=== PATIENT | female | born 1960 | race Caucasian/White ===

== ENCOUNTER 2016-03-08 06:41 | Inpatient (IN) | payer BC ==
--- NOTE | 2016-02-23 21:28 | HP ---
ADMISSION HISTORY AND PHYSICAL: DATE OF ADMISSION: 03/08/16 ATTENDING SURGEON: Alejandro Villafana MD (dictated by DELMER Pat) CHIEF COMPLAINT: Colostomy. HISTORY OF PRESENT ILLNESS: This is a 55-year-old female who underwent exploratory laparotomy with drainage of pelvic abscess, sigmoid colectomy, and end colostomy with Miriam's pouch for perforated diverticulitis on 11/13/15. She had been treated initially with antibiotic therapy, but ultimately required surgery. She has had an otherwise uneventful postoperative course with the exception of the gradual development of bulge in the area of colostomy indicating a probable parastomal hernia. She has not had any pain or obstructive symptoms. She was last seen by Dr. Villafana on 01/20/16, at which time the hernia was suspected and the patient states that the size of the bulge has increased by approximately 50% since that time. Again, she has had no symptoms of significance. Dr. Villafana has discussed with her the process for reversal of the colostomy. She will complete standard mechanical bowel prep with oral antibiotics. She would like to proceed as scheduled with laparoscopic reversal of colostomy. PAST MEDICAL HISTORY: Diverticular disease as noted above, hypertension, hyperlipidemia, prior history of atrial fibrillation (versus SVT). She was seen in consultation by Dr. Camp who felt that it was an isolated episode and she has had no recurrence since then. 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 PAST SURGICAL HISTORY: Include x2, bilateral breast reduction, dental surgery as well as the Miriam's procedure as noted above. CURRENT MEDICATIONS: 1. Atorvastatin 20 mg once daily. 2. Propranolol LA 160 mg once daily. 3. Probiotic once daily. 4. Biotin once daily. DRUG ALLERGIES: PENICILLIN (hives). FAMILY HISTORY: Notable for her father having difficulty coming out of general anesthesia (confusion and disorientation). Her father also had history of a DVT. No family history of bleeding problems. SOCIAL HISTORY: The patient lives in her own home. Her daughter currently resides with her. She also has a son who is in college. The patient works as an residential real estate assistant. She denies use of tobacco. She drinks on average 1 glass of wine daily. She denies other drug use. REVIEW OF SYSTEMS: General: No recent constitutional symptoms or acute illnesses other than described in the HPI. She did have a net weight loss of about 17 pounds after her hospitalization and has regained about 2 pounds, but weight has otherwise remained stable. HEENT: No additional problems reported. Cardiovascular: No recent episodes of chest pain, palpitations. No history of heart murmur. She was treated for hypertension. Respiratory: No history of asthma, chronic cough, or shortness of breath. GI: No upper GI symptoms. Colostomy has been functional. See also above per HPI. She did undergo colonoscopy around 2007, which was an otherwise unremarkable exam. : No problems reported. COLLEGE ADMISSIONS COUNSELOR: She is up-to-date within the past year for breast and pelvic exams done by her PCP. No interval problems reported. Endocrine: Past history of hypothyroidism, but currently euthyroid. No diabetes. PHYSICAL EXAMINATION GENERAL: Well-nourished, well-developed female, in no acute distress. VITAL SIGNS: Height 5 feet 6 inches, weight 190 pounds, other vital signs per nursing. HEENT: Pupils equal and round, reactive. EOMs intact. No conjunctival pallor. Oropharynx: Teeth in good repair. No intraoral lesions. NECK: No lymphadenopathy, thyromegaly, or masses. HEART: Regular rate and rhythm. No murmur noted. LUNGS: Clear to auscultation. No wheezes. BREASTS: Not examined. ABDOMEN: Well-healed midline incision and left-sided colostomy. There is a notable bulge particularly when the patient is in standing position. This was nontender and reducible in supine position. The remainder of the abdomen is soft, nontender without palpable masses or organomegaly. SKIN: Warm and dry. No suspicious rashes or lesions. GENITALIA: Not done. RECTAL: Not done. BACK: No spinous process or CVA tenderness. EXTREMITIES: No edema. NEUROLOGICAL: Grossly intact. IMPRESSION: Colostomy. PLAN: Laparoscopic reversal of colostomy. DELMER NO CC: Antoinette Feldman NP, KNIT GOODS WASHER* [id number]/[facility] #: [id number] [facility] MEDICAL CENTERRachel
[~2016-03-08 06:41] MED LIST: Buffered Lidocaine 1% SYR 3ML* 3 ML/SYR SYRINGE INTRADERM ONE; Gentamicin ADULT (*) 300 MG in NS 0.9% 100 ML* 100 ML IVPB SCH
[2016-03-08] MEDS ORDERED: Buffered Lidocaine 1% SYR 3ML* 3 ML/SYR SYRINGE ONE (07:08)
[2016-03-08] MEDS ORDERED: Clindamycin 900 MG IVPREMIX(* 900 MG/50 ML SDV IV ONE (07:08)
[2016-03-08] MEDS ORDERED: Heparin VIAL(*) 5000 UNITS/ML VIAL (FIVE THOUSAND) ONE (07:09)
[2016-03-08] MEDS ORDERED: Bupivacaine 0.5% W/EPI SDV* 30 ML VIAL ONE (07:14)
[2016-03-08] MEDS ORDERED: Midazolam* 1 MG/ML 5 ML VIAL (5 MG) ONE (08:03)
[2016-03-08] MEDS ORDERED: Propofol* 10 MG/ML 20 ML BTL IV PUSH ONE (08:08)
[2016-03-08] MEDS ORDERED: Atracurium* 10 MG/ML 10 ML VIAL ONE (08:08)
[2016-03-08] MEDS ORDERED: Scopolamine 1.5 mg* PATCH ONE ×2 (08:09→13:43)
[2016-03-08] MEDS ORDERED: fentaNYL* 50 MCG/ML 5 ML VIAL (250 MCG VIAL) ONE (08:09)
[2016-03-08] MEDS ORDERED: DiMENhydriNATE IV* 50 MG/ML VIAL IV PUSH PRN (09:39)
[2016-03-08] MEDS ORDERED: Ondansetron INJ* 2 MG/ML VIAL IV PRN (09:39)
[2016-03-08] MEDS ORDERED: Ondansetron INJ* 2 MG/ML VIAL ONE ×3 (11:16→12:20)
[2016-03-08] MEDS ORDERED: fentaNYL* 50 MCG/ML 2 ML VIAL (100 MCG VIAL) ONE ×4 (11:16→14:06)
[2016-03-08] MEDS ORDERED: HYDROmorphone INJ* 1 MG/ML CARPUJECT SYRINGE ONE (12:20)
[2016-03-08] MEDS: fentaNYL* 50 MCG/ML 2 ML VIAL (100 MCG VIAL) IV PRN ×5 (12:25→13:44)
[2016-03-08] MEDS: HYDROmorphone INJ* 1 MG/ML CARPUJECT SYRINGE IV PRN ×5 (12:26→13:29)
[2016-03-08] MEDS ORDERED: DiMENhydriNATE IV* 50 MG/ML VIAL ONE (12:27)
[2016-03-08] MEDS ORDERED: Ketorolac INJ* 30 MG/ML 1 ML VIAL IM PRN (12:30)
--- NOTE | 2016-03-08 12:39 | SURGPN ---
Brief Operative Note - Surgery Procedures: PREOP DX: COLOSTOMY, PARASTOMAL HERNIA, H/O DIVERTICULITIS POSTOP DX: SAME AND VENTRAL INCISIONAL HERNIA PROC: ATTEMPTED LAPAROSCOPIC CONVERTED TO OPEN REVERSAL OF COLOSTOMY, ISSA, PRIMARY CLOSURE OF VENTRAL INCISIONAL HERNIAS. SURG: MECENAS ASSIST: SPIKE ANES: FARIDA/SIDDHARTHA EBL: 200 ML IVF: 4.9L LR SPEC: COLOSTOMY DRAIN: NONE COMPL: NONE COND: STABLE /EXTUBATED TO RR.
[2016-03-08] MEDS ORDERED: HYDROmorphone PCA* 20 MG/20 ML PCA.SYRING ONE (13:03)
[2016-03-08] MEDS ORDERED: Neostigmine Methylsulfate* 2 MG/2 ML SYRINGE ONE ×2 (13:43→15:14)
[2016-03-08] MEDS ORDERED: Glycopyrrolate IV* 0.2 MG/ML 1 ML VIAL ONE ×2 (13:43→15:14)
[2016-03-08] MEDS ORDERED: HYDROmorphone PCA* 20 MG/20 ML PCA.SYRING PCA SCH (14:00)
[2016-03-08] MEDS: Docusate CAP* 100 MG PO SCH (22:19)
[2016-03-09 07:08] LABS: Hematocrit 30 % (35-47); Hemoglobin 9.7 g/dl (12.0-16.0); Mean Corpuscular HGB Conc 32 g/dl (31-36); Mean Corpuscular Hemoglobin 28 pg (27-31); Mean Corpuscular Volume 86 fL (80-97); Mean Platelet Volume 8 um3 (7.4-10.4); Red Blood Count 3.49 10^6/ul (4.0-5.4); Red Cell Distribution Width 15 % (10.5-15); White Blood Count 14.4 10^3/ul (3.5-10.8)
[2016-03-09 07:17] LABS: BUN/Creatinine Ratio 12.6 (8-20); Calcium 8.6 mg/dL (8.6-10.3); EGFR African American 45.8 (>60); EGFR Non-African American 35.6 (>60); Potassium 4.5 mmol/L (3.5-5.0)
--- NOTE | 2016-03-09 09:04 | PN ---
Progress Note - Progress Note SOAP: Subjective: []awake,alert,sipping clears,reports good pain control with AIRPORT RAMP ATTENDANT,using inspiron, no flatus,some belching Objective:lungs with decreased bs at bases,clear upper saldaña;heart:RRR,was tachy to 102,now 88bpm,no M/R;abd:hypoactive bs,dressing intact,binder on; extremities:SCDs on,nontender [] Assessment:POD#1s/p open reversal colostomy,ISSA,primary closure ventral incisional hernias;low uo and tachy overnight,creat 1.5;getting IV bolus now and HR 88 now,tolerating clears;motivated to use inspiron and walk [] Plan:Await GI function,continue clears for now;follow uo;encourage inspiron and walking,repeat P3 03/10/16 Vital Signs Temp 98.1 F 03/09/16 07:10 Pulse 102 03/09/16 07:10 Resp 22 03/09/16 07:10 BP 106/58 03/09/16 07:10 Pulse Ox 100 03/09/16 07:00 Intake & Output 03/08/16 03/09/16 03/09/16 18:59 06:59 18:59 Intake Total 5300 2434 Output Total 525 600 Balance 4775 1834 Weight 191 lb Intake: IV Fluids 5300 2114 GENTAMYCIN 300MG 200 LR 2114 Lactated Ringer's 5100 Oral 320 Output: Griffin 325 600 Estimated Blood Loss 200 Other: # Bowel Movements 0 []
[2016-03-09] MEDS: Atorvastatin* 20 MG TAB PO SCH (09:14)
[2016-03-09] MEDS: PROPRANOLOL 160 MG PO SCH (09:14)
[2016-03-09] MEDS: Docusate CAP* 100 MG PO SCH ×2 (09:14→19:42)
--- NOTE | 2016-03-09 10:03 | OP ---
DATE OF OPERATION: 03/08/16 - ROOM #332 DATE OF : 58 SURGEON: Alejandro Villafana MD PROFESSOR OF ARCHAEOLOGY: Hossein Jensen MD ANESTHESIOLOGIST: Niraj Marin MD ANESTHESIA: General endotracheal. PRE-OP DIAGNOSES: 1. Colostomy. 2. Parastomal hernia. 3. History of diverticulitis. POST-OP DIAGNOSIS: 1. Colostomy. 2. Parastomal hernia. 3. History of diverticulitis. 4. Ventral incisional hernia. OPERATIVE PROCEDURE: Laparoscopic converted to open reversal of colostomy with lysis of adhesions and primary closure of ventral incisional hernias. ESTIMATED BLOOD LOSS: 200 mL. IV FLUIDS: 4.9 L of crystalloids. SPECIMEN: Colostomy. DRAINS: None. COMPLICATIONS: None. COUNTS: Instrument, needle, and sponge counts were correct. DESCRIPTION OF PROCEDURE: The patient was brought to the operating room and placed on table supine. Sequential compression devices were placed on both lower extremities. General anesthesia was administered. Griffin catheter was placed. Colostomy was oversewn. Rectal stump was irrigated with Betadine solution. The patient received appropriate antibiotics. The abdomen was prepped and draped in the usual sterile fashion. Time-out was performed. Local anesthetic was infiltrated into the skin and soft tissue prior to making the initial incisions. A curvilinear periumbilical incision was created to the patient's previous scar in the upper abdomen. There was found to be a hernia at this site. Hernia sac was entered and a 12-mm trocar was placed. Carbon dioxide was insufflated to a pressure of 15 mmHg. Laparoscope was introduced. There were numerous adhesions of omentum into the anterior abdominal wall. A clear area was noted on the right side and a 5-mm trocar was placed in the right lower quadrant. Omental adhesions were taken down using a combination of sharp and blunt dissection and LigaSure. There was a notable parastomal hernia. The ventral incisional hernia at the superior aspect of the incision was at least 6 cm across. There were adhesions in the pelvis involving small bowel. Based on the findings, it was felt that it would be best to convert to laparotomy to complete the procedure. Laparoscope was removed and ports were removed. Midline laparotomy was undertaken utilizing the previous scar. The patient was noted to have areas of attenuation in the midline in the infraumbilical portion of the previous abdominal closure as well. The adhesiolysis was completed to free the omentum completely and drawing it up out of the abdomen. The small bowel was freed as well and able to be retracted into the upper abdomen. There was noted to be a rectal stump that ended at the sacral promontory. There appeared to be no adhesions or inflammation in this area. The colostomy was freed from the subcutaneous tissues after incising the skin around it. Due to the presence of a parastomal hernia, this made the dissection relatively straight forward. Once the colostomy was freed from the site, it was brought up to the midline and then the distal portion was transected, and the bowel was sized for the EEA stapler. It was decided to use a 28-mm EEA stapler. The anvil was placed into the proximal lumen of the bowel and then a 2-0 Surgipro was used to pursestring the bowel around the anvil. Next, the sizers were passed transrectally. Due to the presence of some constriction based on the peritoneal reflection, it was decided to mobilize this area. The cautery was used to score the peritoneum around the anterior rectum in order to free it. At this point, the colostomy site was addressed. In order to close the hernia at this site, the anterior and posterior rectus fascia were each identified and using a combination of sharp and cautery dissection. The posterior sheath was closed with interrupted #1 Polysorb using interrupted [id number] sutures. This was closed from the inside of the peritoneal cavity. The anterior sheath was closed in the same fashion. At this point, we then proceeded with the colorectal anastomosis. The EEA was stapler was able to be passed without difficulty transanally, transrectally, and the stapler was brought out in the anterior portion of the superior rectum just about 2 to 3 cm distal to the staple line. The anastomosis was performed and then this was tested using a bubble leak test and there was no leak identified. Copious lavage was performed in the peritoneum until clear and inspection of small bowel and omentum revealed some areas of bleeding on the omentum and these were controlled with cautery and 2-0 Polysorb suture ligature. The omentum was then placed beneath the incision. Due to the presence of the ventral incisional hernia superiorly, as well the attenuated areas infraumbilically the subcutaneous tissues were elevated at these sites to identify the healthy fascial edges. This was done on both the left and right sides of the abdomen. After identifying healthy fascial edges, the wound was closed with interrupted #1 Polysorb using [id number] sutures and then the subcutaneous tissues were copiously lavaged. Hemostasis was achieved with the use of cautery and the midline wound was closed with stefany. The lateral colostomy wound was in direct communication with the midline wound after we had mobilized the subcutaneous tissues and this was partially closed with stefany in the middle and then packed with 1-inch plain gauze saline packing. Dressings were applied. The patient tolerated this procedure well. She was extubated and transferred to the recovery room in stable condition. CC: Michelle Rendon MD* [id number]/[facility] #: [id number] MTDD
[2016-03-09] MEDS ORDERED: Acetaminophen TAB* 325 MG ONE (19:33)
[2016-03-10] MEDS: Acetaminophen TAB* 325 MG PO PRN ×3 (04:13→20:59)
[2016-03-10 06:38] LABS: BUN/Creatinine Ratio 12.2 (8-20); Calcium 8.7 mg/dL (8.6-10.3); EGFR African American 75.5 (>60); EGFR Non-African American 58.7 (>60)
[2016-03-10 06:58] LABS: Potassium 4.2 mmol/L (3.5-5.0)
[2016-03-10] MEDS: Docusate CAP* 100 MG PO SCH ×2 (09:38→20:58)
[2016-03-10] MEDS: Atorvastatin* 20 MG TAB PO SCH (09:38)
[2016-03-10] MEDS ORDERED: oxyCODONE/Acetamin 5/325 MG* TAB PO PRN (09:38)
[2016-03-10] MEDS: PROPRANOLOL 160 MG PO SCH (09:38)
[2016-03-10] MEDS: Ondansetron INJ* 2 MG/ML VIAL IV PRN (11:10)
--- NOTE | 2016-03-10 14:26 | PN ---
Progress Note - Progress Note SOAP: Subjective: Had a lot of pain last night. Currently about a 5/10 when at rest. Dilaudid RESAW MACHINE OPERATOR helpful. No flatus/N/V. Objective: Vital Signs Temp 98.7 F 03/10/16 07:13 Pulse 71 03/10/16 07:13 Resp 18 03/10/16 11:00 BP 104/67 03/10/16 07:13 Pulse Ox 95 03/10/16 11:00 Intake & Output 03/09/16 03/10/16 03/10/16 18:59 06:59 18:59 Intake Total 2857 1680 1125 Output Total 800 2725 700 Balance 2056 -1044 425 Intake: IV Fluids 5305 834 7768 LR 9574 875 1308 Oral 900 700 120 Output: Urine 550 Griffin 800 2725 Emesis 150 Other: Estimated Void Medium # Bowel Movements 0 Abd: dressings intact with ss staining on LLQ wound. Midline wound intact without erythema. Packing in LLQ wound. No drainage noted. Laboratory Results - last 24 hr 03/10/16 05:22 Sodium 135 Potassium 4.2 Chloride 105 Carbon Dioxide 22 Anion Gap 8 BUN 12 Creatinine 0.98 H Est GFR ( Amer) 75.5 Est GFR (Non-Af Amer) 58.7 BUN/Creatinine Ratio 12.2 Glucose 100 Calcium 8.7 Assessment: POD#2 s/p reversal of colostomy and ventral hernia repairs. Doing well. Plan: Await GI function. Ok to adv diet to full. Add po pain meds.
[2016-03-10] MEDS: oxyCODONE/Acetamin 5/325 MG* TAB PO PRN (15:39)
[2016-03-11] MEDS: Acetaminophen TAB* 325 MG PO PRN (02:27)
[2016-03-11] MEDS: PROPRANOLOL 160 MG PO SCH (08:43)
[2016-03-11] MEDS: Docusate CAP* 100 MG PO SCH ×2 (08:44→20:06)
[2016-03-11] MEDS: Atorvastatin* 20 MG TAB PO SCH (08:44)
--- NOTE | 2016-03-11 10:46 | PN ---
Progress Note - Progress Note SOAP: Subjective: No flatus but feels gas moving around. Pain control is better today. She has been walking more. We discussed expectations regarding discharge and follow up. Objective: Vital Signs Temp 98.2 F 03/11/16 07:37 Pulse 72 03/11/16 07:37 Resp 16 03/11/16 07:37 BP 144/91 03/11/16 07:37 Pulse Ox 97 03/11/16 07:37 Intake & Output 03/10/16 03/11/16 03/11/16 18:59 06:59 18:59 Intake Total 1365 2902 Output Total 1250 825 600 Balance 115 2077 -600 Intake: IV Fluids 1005 1932 LR 1005 1932 IVPB 50 LR 50 Oral 360 920 Output: Urine 700 825 600 Colostomy 400 Emesis 150 Other: Estimated Void Medium NAD Abd: incis c/d/i; no erythema; soft; minimal tenderness. Packing changed. +BS. Assessment: POD#3 s/p reversal of colostomy/hernia repair. Doing well. Plan: Await flatus. Continue packing. Likely home Sun/Mon.
[2016-03-12] MEDS: Ondansetron INJ* 2 MG/ML VIAL IV PRN (07:48)
[2016-03-12] MEDS: Atorvastatin* 20 MG TAB PO SCH (08:17)
[2016-03-12] MEDS: Docusate CAP* 100 MG PO SCH ×2 (08:17→21:57)
[2016-03-12] MEDS: PROPRANOLOL 160 MG PO SCH (08:17)
[2016-03-12] MEDS ORDERED: Ondansetron ODT TAB* 4 MG PO PRN (10:01)
[2016-03-12] MEDS: oxyCODONE/Acetamin 5/325 MG* TAB PO PRN ×4 (10:08→21:56)
[2016-03-13] MEDS: oxyCODONE/Acetamin 5/325 MG* TAB PO PRN ×3 (02:11→11:28)
[2016-03-13] MEDS: Atorvastatin* 20 MG TAB PO SCH (09:14)
[2016-03-13] MEDS: PROPRANOLOL 160 MG PO SCH (09:14)
[2016-03-13] MEDS: Docusate CAP* 100 MG PO SCH (09:14)
[2016-03-13 12:18] VITALS: BP 151/87
--- NOTE | 2016-05-21 14:36 | DS ---
DISCHARGE SUMMARY: DATE OF ADMISSION: 03/08/16 DATE OF DISCHARGE: 03/13/16 DISCHARGE DIAGNOSES: 1. Colostomy status. 2. Diverticular disease. 3. Hypertension. 4. Hyperlipidemia. 5. Parastomal hernia. OPERATIVE PROCEDURE: Laparoscopic converted to open reversal colostomy with lysis of adhesions and primary closure of ventral incisional hernias. SURGEON: Alejandro Villafana MD. DATE OF SURGERY: 03/08/16 HOSPITAL COURSE: This is a 55-year-old female with known history of diverticular disease, who is status post exploratory laparotomy with drainage of pelvic abscess and sigmoid colectomy as well as end colostomy and Miriam's pouch. The patient was admitted on 03/08/16 for elective reversal of her colostomy with repair of ventral incisional hernias. The patient was admitted same day, taken to the operating room and underwent the operation as described in the operative report. Postoperatively, the patient did well; and on 03/09/16, she was awake, alert, taking clear liquids. She was using ADJUNCT FACULTY with good pain control and ambulating and using her Inspiron. The remainder of her postoperative course was unremarkable and she was passing flatus and having bowel movements by 03/13/16. Diet was advanced. Wound was being managed with packing changes and it was felt she was stable for discharge home on 03/13/16. She is provided with discharge instructions from [facility] office and she was instructed to follow up a week after for routine followup. No tests were pending. [id number]/[facility] #: [id number] MTDD
== END 2016-03-13 17:56 | disposition home or self-care (01) | DRG 221 ==
LOC: AA 06:41 → SSU 12:30
PROVIDERS: ADMIT Surgery; ATTEND Surgery
PROC: 0DNS0ZZ (ICD-10-PCS; 2016-03-08)
PROC: 0WQF0ZZ Repair Abdominal Wall, Open Approach (ICD-10-PCS; 2016-03-08)
PROC: 0DBN0ZZ Excision of Sigmoid Colon, Open Approach (ICD-10-PCS; 2016-03-08)
PROC: 0WJF4ZZ Inspection of Abdominal Wall, Percutaneous Endoscopic Approach (ICD-10-PCS; 2016-03-08)
PROC: 0WQF0ZZ Repair Abdominal Wall, Open Approach (ICD-10-PCS; 2016-03-08)
PROC: 0DQS0ZZ (ICD-10-PCS; 2016-03-08)
PROC: 0DNS4ZZ (ICD-10-PCS; principal; 2016-03-08 08:00)
DX: Z43.3 Encounter for attention to colostomy (principal); I48.91 Unspecified atrial fibrillation; I10 Essential (primary) hypertension; K57.90 Diverticulosis of intestine, part unspecified, without perforation or abscess without bleeding; E78.5 Hyperlipidemia, unspecified; K43.2 Incisional hernia without obstruction or gangrene; R00.0 Tachycardia, unspecified; E66.9 Obesity, unspecified; K43.5 Parastomal hernia without obstruction or gangrene; K66.0 Peritoneal adhesions (postprocedural) (postinfection); Z88.0 Allergy status to penicillin; Z83.2 Family history of diseases of the blood and blood-forming organs and certain disorders involving the immune mechanism; Z84.89 Family history of other specified conditions; Z68.30 Body mass index [BMI] 30.0-30.9, adult; Z53.31 Laparoscopic surgical procedure converted to open procedure
CPT/HCPCS: 36415; 80048; 85025; 88304; 94760; A9270-GY; J1170; J1240; J1580; J1644; J1885; J2250; J2405; J2704; J3010

== ENCOUNTER 2016-08-09 10:33 | Observation (INO) | payer BC ==
--- NOTE | 2016-07-26 16:03 | HP ---
CC: Dr. Michelle Rendon * PREOPERATIVE HISTORY AND PHYSICAL: DATE OF PREOPERATIVE HISTORY AND PHYSICAL: 07/26/16 DATE OF ADMISSION/SURGERY: 08/09/16 This patient is scheduled for AA admission by Dr. Villafana on 08/09/16. ATTENDING SURGEON: Alejandro Villafana MD (dictated by Shaquille Gonzales NP). CHIEF COMPLAINT: Ventral incisional hernia. HISTORY OF PRESENT ILLNESS: The patient is a 56-year-old female, well-known to Dr. Villafana; she is status post expiatory laparotomy with sigmoid colectomy and Miriam's procedure for acute sigmoid diverticulitis with abscess, in October 2015; on 03/08/16 she underwent laparoscopic, converted to open, colostomy reversal with lysis of adhesions and primary closure of ventral incisional hernias. She returned to see Dr. Villafana on 06/15/16 because of bulging in the area of the midline incision, in the periumbilical region towards the left. She denied any nausea, vomiting or change in bowel habits or pain or tenderness. She noticed that the bulge reduces when she is supine. Dr. Villafana examined the patient and noted an incisional ventral hernia and recommends laparoscopic repair of the ventral incisional hernia with mesh, and described the nature of the surgical procedure, the relevant risks and benefits , the need for inpatient hospitalization, and today I reviewed the expected postoperative care and recovery, including the use of an abdominal binder postoperatively. The patient has had a chance to ask questions and stated that she understands the informations and is satisfied with the answers given to her questions. She will sign surgical consent on the day of surgery. PAST MEDICAL HISTORY: Diverticular disease as noted above, hypertension, hyperlipidemia, prior history of atrial fibrillation (versus SVT). She was seen in consultation by Dr. Camp who felt that it was an isolated episode and she has had no recurrence since then. PAST SURGICAL HISTORY: section x2; bilateral breast reduction; exploratory laparotomy with sigmoid colectomy, drainage of abscess, and end colostomy with Miriam's pouch for acute sigmoid diverticulitis with abscess and small bowel obstruction, 11/13/15, by Dr. Villafana; laparoscopic, converted to open, colostomy reversal with lysis of adhesions and primary closure of ventral incisional hernias, 03/08/16, by Dr. Villafana. CURRENT MEDICATIONS: 1. Atorvastatin 20 mg p.o. daily in the morning. 2. Propranolol LA 160 mg p.o. daily in the morning. 3. Multivitamin daily. 4. Probiotic daily. 5. Biotin supplement daily. ALLERGIES: PENICILLIN causes hives. FAMILY HISTORY: Notable for father with history of DVT, confusion, and disorientation on coming out of general anesthesia. No family history of bleeding problems. 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 She denies the use of tobacco and drinks on average 1 glass of wine daily, and denies the use of other substances. REVIEW OF SYSTEMS: Constitutional: No recent symptoms or acute illnesses. HEENT: No problems reported. Cardiovascular: No recent episodes of chest pain , palpitations or syncope; she has a history of hypertension and hyperlipidemia. Respiratory: No history of asthma, chronic cough or shortness of breath. GI: No upper GI symptoms; no chronic diarrhea or constipation. Genitourinary: No problems reported. PUPPY SITTER: She is up-to-date within the past year for breast and pelvic exams, done by her primary care provider. No interval problems reported. Endocrine: Past history of hypothyroidism, currently euthyroid. No diabetes. She denies any previous anesthesia complications; she denies any history of deep vein thrombosis or pulmonary embolism; she has never received a blood transfusion and denies any bleeding tendencies. PHYSICAL EXAMINATION GENERAL SURVEY: The patient is a 56-year-old female, well developed, well nourished, in no acute distress. VITAL SIGNS: Height 66 inches, weight 195 pounds, body mass index 31.5, blood pressure 130/74, pulse 60 and regular, respiratory rate 16, temperature 98.1 tympanic. HEENT: Benign. NECK: Supple. No cervical lymphadenopathy. No thyromegaly. LUNGS: Breath sounds bilaterally clear and equal. HEART: Regular rate and rhythm. No murmurs or rubs appreciated. ABDOMEN: Active bowel sounds, well-healed midline and left lower quadrant surgical scars; soft, nontender throughout; with the patient standing there is a protrusion in the infraumbilical region to the left of midline, with the patient supine the mass reduces and palpation reveals a defect approximately 4 cm wide x 8 cm long; there is no associated tenderness. BACK: No CVA tenderness. PELVIC: Deferred. RECTAL: Deferred. EXTREMITIES: Warm, without edema or skin ulceration or calf tenderness. SKIN: Warm, dry, intact. NEUROLOGIC: Alert and oriented x3, steady gait. IMPRESSION: Ventral incisional hernia. PLAN: AA admission to Dr. Villafana' service on 08/09/16 for laparoscopic repair of the ventral incisional hernia with mesh. SHAQUILLE GONZALES, STOVE REFINISHER [id number]/[facility] #: [id number] [facility] CENTERRachel
[~2016-08-09 10:33] MED LIST changes: +Buffered Lidocaine 0.9% SYRIN* 5 ML/SYR SYRINGE INTRADERM ONE; -Buffered Lidocaine 1% SYR 3ML* 3 ML/SYR SYRINGE INTRADERM ONE; +Famotidine TAB* 20 MG PO ONE; -Gentamicin ADULT (*) 300 MG in NS 0.9% 100 ML* 100 ML IVPB SCH; +Ibuprofen TAB* 400 MG PO ONE; +Metoclopramide TAB* 10 MG PO ONE; +Sodium Citrate/Citric Acid* 15 ML UDC PO ONE
[2016-08-09] MEDS ORDERED: Metoclopramide TAB* 10 MG ONE (10:46)
[2016-08-09] MEDS ORDERED: Clindamycin 900 MG IVPREMIX(* 900 MG/50 ML SDV IV ONE (10:46)
[2016-08-09] MEDS ORDERED: Sodium Citrate/Citric Acid* 15 ML UDC ONE (10:46)
[2016-08-09] MEDS ORDERED: Buffered Lidocaine 0.9% SYRIN* 5 ML/SYR SYRINGE ONE (10:46)
[2016-08-09] MEDS ORDERED: Ibuprofen TAB* 400 MG ONE (10:46)
[2016-08-09] MEDS ORDERED: Famotidine TAB* 20 MG ONE (10:46)
[2016-08-09] MEDS ORDERED: Heparin VIAL(*) 5000 UNITS/ML VIAL (FIVE THOUSAND) ONE ×2 (11:20→11:23)
[2016-08-09] MEDS ORDERED: Bupivacaine 0.5% W/EPI SDV* 30 ML VIAL ONE (14:51)
[2016-08-09] MEDS ORDERED: fentaNYL* 50 MCG/ML 2 ML VIAL (100 MCG VIAL) ONE ×3 (15:14→19:59)
[2016-08-09] MEDS ORDERED: Scopolamine 1.5 mg* PATCH ONE (15:18)
[2016-08-09] MEDS ORDERED: Lidocaine 2% PF * 5 ML VIAL ONE (15:20)
[2016-08-09] MEDS ORDERED: Propofol* 10 MG/ML 20 ML BTL IV PUSH ONE (15:20)
[2016-08-09] MEDS ORDERED: Ondansetron INJ* 2 MG/ML VIAL ONE (15:20)
[2016-08-09] MEDS ORDERED: Dexamethasone IV* 4 MG/ML 1 ML (4 MG) ONE (15:20)
[2016-08-09] MEDS ORDERED: Atracurium* 10 MG/ML 10 ML VIAL ONE (15:20)
[2016-08-09] MEDS ORDERED: oxyCODONE TAB* 5 MG TAB PO PRN (16:01)
[2016-08-09] MEDS ORDERED: Ketorolac INJ* 30 MG/ML 1 ML VIAL IV PRN (16:01)
[2016-08-09] MEDS ORDERED: Acetaminophen TAB* 325 MG PO PRN (18:56)
[2016-08-09] MEDS ORDERED: Ondansetron INJ* 2 MG/ML VIAL IV PRN (18:56)
[2016-08-09] MEDS ORDERED: Docusate CAP* 100 MG PO PRN (18:56)
--- NOTE | 2016-08-09 19:05 | PN ---
Progress Note - Progress Note Note: Brief operative Note Pre-op: Large ventral incisional hernia Post-op: Same Procedure: Laparoscopic VIH repair with mesh Surgeon: Dr. Villafana Mix Mill Tender: Chriss Wise EBL: Minimal Fluids: LR 2000 cc Urine: 200 cc Catheter: Griffin to gravity, d/c'ed at PACU Drains: None Specimen: Hernia sac Findings: See dictated op note
[2016-08-09] MEDS: fentaNYL* 50 MCG/ML 2 ML VIAL (100 MCG VIAL) IV PRN ×4 (19:26→20:10)
[2016-08-09] MEDS ORDERED: HYDROmorphone* 1 MG/ML 1 ML SYR ONE (19:31)
[2016-08-09] MEDS: HYDROmorphone* 1 MG/ML 1 ML SYR IV PRN ×2 (19:32→22:29)
[2016-08-09] MEDS ORDERED: Ketorolac INJ* 30 MG/ML 1 ML VIAL ONE (19:36)
[2016-08-09] MEDS ORDERED: oxyCODONE/Acetamin 5/325 MG* TAB ONE (21:29)
[2016-08-09] MEDS: oxyCODONE/Acetamin 5/325 MG* TAB PO PRN (21:30)
[2016-08-10] MEDS: oxyCODONE/Acetamin 5/325 MG* TAB PO PRN ×5 (03:31→21:31)
[2016-08-10] MEDS: Heparin VIAL(*) 5000 UNITS/ML VIAL (FIVE THOUSAND) SUBCUT SCH ×3 (05:47→21:32)
[2016-08-10] MEDS: HYDROmorphone* 1 MG/ML 1 ML SYR IV PRN ×2 (07:42→09:47)
--- NOTE | 2016-08-10 08:48 | PN ---
Progress Note - Progress Note SOAP: Subjective:POD#1 pain 5/10;ambulated x1;taking po;voiding ok;not sure if ready to go home,decide later [] Objective:alert and oriented;lungs:clear bilat;heart:RRR,no murmur;Abd:+bs, incisions intact with steris,no erythema,soft;Ext:nontender,no edema Vital Signs Temp 98.4 F 08/10/16 07:33 Pulse 62 08/10/16 07:33 Resp 18 08/10/16 07:52 BP 129/64 08/10/16 07:33 Pulse Ox 100 08/10/16 07:52 Intake & Output 08/09/16 08/10/16 08/10/16 18:59 06:59 18:59 Intake Total 1747 403 5102 Output Total 350 Balance 6091 677 5493 Weight 205 lb Intake: IV Fluids 2548 108 3917 LR 2222 773 6569 Oral 250 Output: Urine 350 Other: Estimated Void Small # Bowel Movements 0 # Voids 2 [] Assessment: stable POD #1 s/p Lap repair ventral hernia with mesh [] Plan:possible discharge later today depending on pain control and ambulation []
[2016-08-10] MEDS: Atorvastatin* 20 MG TAB PO SCH (08:49)
[2016-08-10] MEDS: PROPRANOLOL 160 MG PO SCH (08:49)
[2016-08-10] MEDS: Ketorolac INJ* 30 MG/ML 1 ML VIAL IV PUSH SCH ×2 (11:48→17:30)
[2016-08-10] MEDS: Docusate CAP* 100 MG PO SCH (19:55)
[2016-08-11] MEDS: Ketorolac INJ* 30 MG/ML 1 ML VIAL IV PUSH SCH ×3 (00:35→12:00)
[2016-08-11] MEDS: oxyCODONE/Acetamin 5/325 MG* TAB PO PRN ×2 (03:17→08:27)
[2016-08-11] MEDS: Heparin VIAL(*) 5000 UNITS/ML VIAL (FIVE THOUSAND) SUBCUT SCH ×2 (05:55→12:43)
[2016-08-11] MEDS: Docusate CAP* 100 MG PO SCH (08:26)
[2016-08-11] MEDS: Atorvastatin* 20 MG TAB PO SCH (08:27)
[2016-08-11] MEDS: PROPRANOLOL 160 MG PO SCH (08:30)
--- NOTE | 2016-08-11 08:55 | PN ---
Progress Note - Progress Note SOAP: DISCHARGE NOTE Subjective: Feels better. Using Percocet and ibuprofen with good effect. Wants to go home. +flatus. Objective: Vital Signs Temp 97.7 F 08/11/16 04:05 Pulse 60 08/11/16 03:39 Resp 18 08/11/16 08:27 BP 107/67 08/11/16 03:39 Pulse Ox 92 08/11/16 03:39 NAD Abd: incis c/d/i; no erythema. Tender soft. Intake & Output 08/10/16 08/11/16 08/11/16 18:59 06:59 18:59 Intake Total 4446 2936 Output Total 750 1050 Balance 3696 1886 Intake: IV Fluids 2826 616 LR 1841 616 Oral 1620 2320 Output: Urine 750 1050 Other: Estimated Void Medium Estimated Stool Amount Medium Assessment: POD#2 s/p lap VHR with mesh. Doing well. Plan: Home today with binder. Needs Rx. RTO 7-10 days.
[2016-08-11 13:05] VITALS: BP 133/85
--- NOTE | 2016-08-12 13:19 | DS ---
CC: Dr. Michelle Rendon * DISCHARGE SUMMARY: DATE OF ADMISSION: 08/09/16 DATE OF DISCHARGE: 08/11/16 HOSPITAL COURSE: The patient was taken to the operating room on 08/09/16 at which time she underwent a laparoscopic repair of a ventral incisional hernia with mesh (see separate operative note). The patient has had a fairly unremarkable postoperative course with gradual improvement in her pain and only requiring oral analgesics as of the morning of discharge. She is also tolerating diet well. She was seen and examined by Dr. Villafana on the morning of discharge. She will resume her usual medications and a prescription was electronically sent to her pharmacy for Percocet 5/325 one to two tablets every 4 hours p.r.n. pain. She will be seen for followup in our office on 08/18/16. DELMER NO [id number]/[facility] #: [id number] LIUDMILA
[2016-08-12] MEDS ORDERED: Scopolomine PATCH Remove* 1 NOTE MISC PATCH OFF ONE (16:02)
--- NOTE | 2016-08-13 14:41 | OP ---
CC: Michelle Rendon MD * DATE OF OPERATION: 08/09/16 - ROOM #334 DATE OF : 58 SURGEON: Alejandro Villafana MD RECREATION CLERK: DELMER Hough ANESTHESIOLOGIST: Carlos Savage MD ANESTHESIA: General endotracheal. PRE-OP DIAGNOSIS: Ventral incisional hernia. POST-OP DIAGNOSIS: Ventral incisional hernia. OPERATIVE PROCEDURE: Laparoscopic repair of ventral incisional hernia with mesh. ESTIMATED BLOOD LOSS: Minimal. IV FLUIDS: Crystalloids. SPECIMEN: None. DRAINS: None. COMPLICATIONS: None. COUNTS: Instrument, needle, and sponge counts were correct. DESCRIPTION OF PROCEDURE: The patient was brought to the operating room and placed on the table supine. Sequential compression devices were placed on both lower extremities and general anesthesia was administered. Griffin catheter was placed. Her abdomen was prepped and positioned in usual sterile fashion. A time -out was performed. Local anesthetic was infiltrated into the skin and soft tissue prior to making each incision. Entry to the abdomen was through a right upper quadrant incision using a Veress needle and after accessing the peritoneal cavity, carbon dioxide was insufflated to a pressure of 15 mmHg. A bladeless 5-mm optical trocar was placed in the right mid abdomen, a second in the right lower quadrant, and then a 12-mm trocar also placed in the right side of the abdomen between the two other trocars. Angled 5-mm laparoscope was introduced and there were noted to be numerous adhesions into a hernia defect, which was extending from the midline lateral to the left below the umbilicus. The defect ultimately measured 8 x 10 cm oriented cephalocaudad. Adhesiolysis was performed to free the omentum from the hernia. The hernia sac was then excised using a LigaSure cautery, sharp and blunt dissection. The mesh selected for repair was a 15 x 20 cm mesh and this was placed into the peritoneal cavity. I utilized the [employer] Ventralex with Echo Positioning System. The mesh was tacked initially along the four mid points with the CapSure tacker and then additional tacks placed in the left lower quadrant and across the lower portion. The upper portion of the mesh appeared to be malpositioned and therefore, I had to remove tacks from the site. This was done by unscrewing the tacks and removing them one by one. I needed to place additional 5-mm trocars, two of which were placed in the left lower quadrant to complete this. After removing the tacks, the mesh was able to be repositioned to properly cover the defects and secured at 1-cm interval circumferentially around the mesh making sure that there was at least 4-cm overlap of the hernia edges. Additional tacks were placed in the mid portions of the mesh to decrease the -space. After assuring hemostasis and assuring the position of the mesh, the 12-mm port site was closed with 0 Polysorb in an interrupted fashion to approximate muscle and fascia in one layer. The remaining trocars were removed under direct visualization. Carbon dioxide was released. Skin incisions were closed with 4- 0 Monocryl in a subcuticular fashion. Steri- Strips were applied. The patient tolerated the procedure well, was extubated and transferred to the recovery room in a stable condition. [id number] #: [id number] LIUDMILA
== END 2016-08-11 13:20 | disposition home or self-care (01) ==
LOC: OR 10:33 → SSU 20:45
PROVIDERS: ADMIT Surgery; ATTEND Surgery
PROC: 0WUF4JZ Supplement Abdominal Wall with Synthetic Substitute, Percutaneous Endoscopic Approach (ICD-10-PCS; principal; 2016-08-09 11:45)
DX: K43.2 Incisional hernia without obstruction or gangrene (principal); I10 Essential (primary) hypertension; E78.5 Hyperlipidemia, unspecified; I48.91 Unspecified atrial fibrillation
CPT/HCPCS: 96372; 96374; 96375; 96376; A9270-GY; C1781; G0378; J1100; J1170; J1644; J1885; J2405; J2704; J3010